=== PATIENT | male | born 1995 | race Caucasian/White ===

== ENCOUNTER 2021-05-16 15:27 | Emergency (ER) | payer BC, SELFPAY ==
[2021-05-16 15:41] VITALS: BP 124/66; PULSE 86; RESP 16; TEMP 36.6; O2SAT 98
--- NOTE | 2021-05-16 16:19 | ED.DENTAL ---
HPI - Dental/Oral General Chief complaint: Dental/Oral Stated complaint: Tooth Pain Time Seen by Provider: 05/16/21 16:20 Source: patient and RN notes reviewed Mode of arrival: ambulatory Limitations: no limitations History of Present Illness HPI Narrative: 26-year-old male presents with concern for dental pain. Reports swelling, pain above teeth 7 and 8. Reports he has had similar pain in the past which he was able to clean out with good dental care. Reports he has been doing that with no relief of pain, reports pain and swelling are worsening. He denies difficulty swallowing, fever. MD Complaint: tooth pain Related Data Home Medications Medication Instructions Recorded Confirmed insulin aspart U-100 15 - 22 unit SUBCUT TID 05/16/21 05/16/21 insulin degludec [Tresiba 25 unit SUBCUT DAILY 05/16/21 05/16/21 FlexTouch U-100] Allergies Allergy/AdvReac Type Severity Reaction Status Date / Time No Known Allergies Allergy Verified 05/16/21 16:16 Review of Systems Review of Systems: Narrative: CONSTITUTIONAL: Denies malaise, chills, sweats, or fever. ENT: Denies fullness, swollen tongue. Reports dental pain above tooth 7 and 8 MUSCULOSKELETAL: Denies myalgia. NEUROLOGIC: Denies numbness, weakness, or headache. All systems reviewed & are unremarkable except as noted in HPI and below PMFSH Comments At time of signature, agree with nursing past medical, surgical, social and family history. There is no relevant family history pertinent to the presenting complaint Exam Narrative: Exam Narrative: GENERAL: Well-appearing, well-nourished, and in no acute distress. HEAD: Normocephalic, atraumatic. EYES: PERRLA, conjunctivae clear ENT: Nares clear. Mucous membranes moist. Oropharynx without edema, erythema or lesions. Tonsils not enlarged and without exudate. Erythema and swelling noted above teeth 7 and 8, no periapical abscess noted NECK: Supple. CHEST: No respiratory distress. Speaks in full sentences. HEART: Regular rate and rhythm. SKIN: Warm, dry, no rash. NEURO: Alert and oriented x3. PSYCH: Normal mood and affect Course Course Emergency Course: Patient is aware of diagnosis, understands and agrees to treatment plan. Anticipatory guidance given. Patient agrees to follow-up as directed and is aware of reasons to seek care at the emergency department. Portions of this record may have been created with voice recognition software Vital Signs Vital signs: Vital Signs Temperature 97.9 F 05/16/21 15:41 Pulse Rate 86 05/16/21 15:41 Respiratory Rate 16 05/16/21 15:41 Blood Pressure 124/66 05/16/21 15:41 Pulse Oximetry 98 05/16/21 15:41 Temperature 97.9 F 05/16/21 15:41 Pulse Rate 86 05/16/21 15:41 Respiratory Rate 16 05/16/21 15:41 Blood Pressure 124/66 05/16/21 15:41 Pulse Oximetry 98 05/16/21 15:41 Reviewed. MDM - Dental/Oral MDM Narrative Medical decision making narrative: Patients pain and complaint coupled with physical findings are consistant with dentalgia. There are no focal signs of space occupying lesions that are compromising to the airway; no dysphagia, odynophagia, dysphonia, or dyspnea. No uvular deviation or soft palate edema. Patient is non-toxic appearing. The floor of the mouth is soft with no signs of Jf's Angina; no induration below mandible, no neck pain. Patient is without trismus or drooling and able to swallow secretions. Patient is felt appropriate for discharge home with dental follow up. Critical Care Time Critical Care Time Critical Care Time: No Discharge Plan Discharge Clinical Impression: Dental abscess Patient Disposition: Home, Self-Care Condition: Stable Instructions: Antibiotic Form, Dental Abscess (ED) Additional Instructions: Take antibiotic as directed Avoid temperature extremes May apply heat or ice to the face Gentle brushing and flossing Alternate Tylenol and ibuprofen as needed for pain Follow-up
== END 2021-05-16 16:35 | disposition home or self-care (01) ==
PROVIDERS: Emergency Provider Nurse Practitioner; PCP Family Medicine Adolescent Medicine
DX: K04.7 Periapical abscess without sinus (principal); E10.9 Type 1 diabetes mellitus without complications
CPT/HCPCS: 99213; G0463